=== PATIENT | female | born 1955 | race Caucasian/White ===

== ENCOUNTER → 2018-04-10 | Day surgery (SDC) | payer OTHER ==
[~2018-04-10] VITALS: Ht 162.6 cm; Wt 74.8 kg
[~2018-04-10] MED LIST: ATIVAN0.5 M1 PO; METOPROLOL SUCC50 M2 PO; PERCOCET 5-3251 EACH PO; TRIAMCINOLONE A15 G2 TOP; VITAMIN D2000 UNIT PO
--- NOTE | 2018-04-10 12:25 | NUCLEAR MEDICINE REPORT ---
EXAMINATION: LYMPHOSCINTIGRAPHY CLINICAL INFORMATION: BREAST CANCER, RIGHT SENTINAL NODE COMPARISON: None. TECHNIQUE: A total of 1.3 mCi technetium 99m Lymphoseek was injected in divided doses around the right areola by MARY Grayson at 10:30 AM. Images of the right breast and axilla in the anterior, SHAFER, and right lateral projections were obtained with simultaneous visualization of the body silhouette using a cobalt flood source, with the patient positioned between the flood source and the gamma camera. FINDINGS: Single sentinal node and lymphatic tract is visualized in the right axilla. 2 second echelon node are visualized in the right axilla. No evidence of internal mammary nodes. IMPRESSION: A sentinal node, lymphatic tract and 2 slightly superior echelon nodes in the right axilla are visualized.
--- NOTE | 2018-04-10 13:29 | Operative Report ---
Operative/Inv Procedure Report Surgery Date: 04/10/18 Name of Procedure: Right partial mastectomy with wire localization and sentinel lymph node biopsy Pre-Operative Diagnosis: Right breast cancer Post-Operative Diagnosis: Same Estimated Blood Loss: less than 50ml Surgeon/Motion Picture Camera Operator: Susie Dumont MD Anesthesia: local monitored anesthesi Specimens: Right lumpectomy, cranial margin, medial margin, lateral margin, caudal margin, skin margin, sentinel lymph node 2 Operative/Procedure Note Note: Patient is status post a needle biopsy showed invasive breast cancer, clinical stage I. She is brought to the operating room for partial mastectomy and sentinel lymph node biopsy. Preoperative for localization and lymphoscintigraphy were performed and the films reviewed. 2 g of Ancef was given in the right breast was prepped and draped in a sterile fashion using ChloraPrep. 3 mL of methylene blue diluted with 2 mL of saline was injected in the retroareolar fashion. The axilla was approached first. Local anesthesia 1% lidocaine mixed Marcaine Was Given and a Transverse Incision Was Made in the Lower Axilla. Clavipectoral Fascia Was Entered in the Axilla Was Explored. It Was a Hot Lymph Node Identified with Counts to 10,000 Which Was Excised. There Was an Additional Lymph Node with Counts to 30,000. These Lymph Nodes Were Sent As [place] Lymph Node. There Were No Other Hot, Blue, or Palpable Lymph Nodes in the Axilla. The breast was then approached. An inframammary incision was made laterally after ministering local anesthesia. The wire was brought into the specimen and the air concern was grasped using an Allis clamp and dissected widely. Dissection continued posteriorly to the clavipectoral fascia given the appearance of the mammograms. The specimen was removed and marked for orientation using margin map. The clip was present in the specimen. Additional margins were taken. Deep margin was not taken as the deep margin was the pectoralis fascia. Clips are used to brayden the margins of the lumpectomy bed. Hemostasis adequate deep tissue was approximated using interrupted Vicryl sutures. Both incisions were closed using a running Biosyn subcuticular stitch. Steri-Strips and sterile dressings were applied and patient was transferred to the recovery room in satisfactory condition having tolerated the procedure well.
--- NOTE | 2018-04-13 08:41 | MAMMOGRAPHY REPORT ---
PROCEDURE: US GUIDANCE FOR BREAST PREOPERATIVE NEEDLE LOCALIZATION, RIGHT MM POST NEEDLE LOCALIZATION SINGLE CC VIEW, RIGHT BREAST SPECIMEN RADIOGRAPHY CLINICAL INFORMATION: 62-year-old female, biopsy proved invasive ductal carcinoma of the right breast at 8 o'clock, 8 cm from the nipple. Preoperative needle localization is requested. COMPARISON: Prior studies done on 03/24/2018, 03/19/2018 and 03/10/2018. TECHNIQUE AND FINDINGS: The details of the procedure, as well as the risks, benefits, and alternatives to the procedure were explained to the patient in detail and all of her questions were answered, after which, written informed consent was obtained. Prior to the procedure, sonography revealed architectural distortion measuring 0.6 cm at its maximum dimension at 8 o'clock, 8 cm from the nipple within the right breast. A timeout was performed, the lesion intended for needle localization was targeted and the skin of the right breast was then prepped and draped in the usual sterile fashion. Using sonographic guidance, sterile technique and buffered 5 mL of 2% lidocaine mixed with sodium bicarbonate, without epinephrine for local anesthesia, a 5 cm Kopan's needle was placed within the biopsy proved malignancy at 8 o'clock, 8 cm from the nipple within the right breast. The patient tolerated the procedure well. The single view mammogram further confirmed accurate placement of the wire within the intended mass. No adjustment was considered necessary. Previously placed tissue marker was also identified adjacent to the wire. The worksheet was appropriately labeled and was sent to the OR with the patient. Subsequently, following excision of the mass, the specimen radiography was performed which revealed target within the specimen with intact wire and the previously placed tissue marker within the mass. IMPRESSION: 1. Successful sonographic-guided wire localization of the right breast biopsy proved invasive ductal carcinoma at 8 o'clock, 8 cm from the nipple. 2. Mammographic confirmation of accurate needle localization along with appropriate marking for presurgical roadmap with the worksheet. 3. Final specimen radiograph confirming complete, adequate excision of the mass and removal of the previously placed tissue marker and intact wire. Results were called to Dr. Dumont in the operating room at the time of imaging. The histology report is pending.
== END ==
LOC: STS 01:34
DX: C50.811 Malignant neoplasm of overlapping sites of right female breast (principal); Z17.0 Estrogen receptor positive status [ER+]; I10 Essential (primary) hypertension
CPT/HCPCS: 76942; 77065-RT; 88305; 88307; A9520; J0131; J0690; J2001; J2250; J3490; Q9968